=== PATIENT | female | born 1990 | race Caucasian/White ===

== ENCOUNTER 2022-10-26 19:37 | Emergency (ER) | payer BC, SELFPAY ==
[2022-10-26 19:44] VITALS: BP 138/78; PULSE 124; RESP 20; TEMP 37.1; O2SAT 98; BMI 24.8
--- NOTE | 2022-10-26 19:50 | ED.ALLEREA1 ---
Documented by User: CHELE Escobar 10/26/22 20:51 HPI - Allergic Reaction General Chief complaint: Allergic Reaction Stated complaint: ALLERGIC REACTION Time Seen by Provider: 10/26/22 19:38 Source: patient History of Present Illness HPI narrative: Patient is a 32-year-old female presents to the Emergency Room with concerns of ALLERGIC reaction. Patient states she noticed a warm sensation and itching to the occiput of her scalp yesterday, irritation to her ears, patient awoke this morning with hives on her extremities. States she ate out at a local bar but did not eat any new or different foods. She finished a Macrobid prescription approximately four days ago. She denies any difficulty breathing or swallowing. Patient was seen at the urgent care this morning and given a IM shot of presumptive steroid and was told to take Pepcid and Benadryl, she has been doing this throughout the day but has swelling now of her lower lip. She denies any abdominal pain or headache, denies any visual disturbance. she denies any known nut ALLERGIES or seafood ALLERGIES. Patient states she does not eat fish products. She denies any soaps lotions or detergents. She denies chance of with last menstrual cycle three weeks ago. MD complaint: Reports allergic reaction and hives Symptoms: Reports itching, facial swelling and lip swelling; Denies difficulty swallowing, difficulty breathing, tongue swelling, hoarseness, dizziness, nausea or vomiting Severity: mild Treatment prior to arrival: Reports benadryl and steroids; Denies topical medicine Related Data Previous Rx's Medication Instructions Recorded epinephrine 0.3 mg/0.3 mL 0.3 mg (0.3 mL) IM Q10M PRN 10/26/22 injection, auto-injector (EpiPen anaphylaxis #2 ea 2-Acosta) loratadine 10 mg tablet (Claritin) 10 mg PO DAILY PRN allergy 10/26/22 symptoms #30 tabs prednisone 20 mg tablet 40 mg PO DAILY 5 days #10 tabs 10/26/22 Allergies Allergy/AdvReac Type Severity Reaction Status Date / Time No Known Drug Allergies Allergy Verified 10/26/22 19:51 Review of Systems ROS Constitutional Denies: fever, chills or change in weight Eyes Denies: change in vision or blurry vision Ears, nose, mouth, and throat Denies: throat pain or neck pain Cardiovascular Denies: chest pain, palpitations or edema Respiratory Denies: shortness of breath or cough Gastrointestinal Denies: abdominal pain, nausea or vomiting Genitourinary Denies: painful urination Musculoskeletal Denies: back pain, neck pain or joint pain Integumentary/Breast Reports: rash Allergic/Immunologic Reports: hives; Denies: throat swelling, tongue swelling, wheezing or itchy eyes PFSH PFSH Social History Smoking status: Never smoker Exam Narrative Exam Narrative: Nurses notes and vital signs reviewed and patient is not hypoxic. General: The patient appears well and in no apparent distress. Patient is resting comfortably on cart. Skin: Warm, dry, no pallor noted.notable hives to the medial thighs and forearms. No involvement of the palms of hands or soles of feet. no sloughing of skin, dermatographia as noted, prominent swelling of the lower lip, no evidence of abscess or infection. Head: Normocephalic, atraumatic Neck: Supple, trachea mid-line, no tenderness, no lymphadenopathy Eye: Pupils are equal, round and reactive to light, EOMI Ears, Nose, Mouth, and Throat: TM are clear, normal light reflex, oral mucosa is moist, no posterior oropharynx erythema or hypertrophy, uvula is mid-line, diffuse lower lip swelling noted. Cardiovascular: Regular Rate and Rhythm Respiratory: Patient is in no distress, no accessory muscle use, lungs are clear to auscultation, no wheezing, rales or rhonchi. Chest Wall: no tenderness Back: non-tender, no CVA tenderness Musculoskeletal: normal ROM, no tenderness, no swelling GI: Normal bowel sounds, no tenderness to palpation, no masses appreciated. No rebound, guarding, or rigidity noted. Neurological: A&O x4 Psychiatric: Cooperative MDM - Allergic Reaction MDM Narrative Medical decision making narrative: stable vital signs, tachycardia noted, 1 L fluid bolus will be given. Patient is not hypotensive, no wheezing, clear lungs and no difficulty swallowing. We will place IV line and start with Pepcid IV and Solu-Medrol one twenty-five. Consider the use of epinephrine upon reevaluation.patient appears in no distress but concerned with pruritus. She cannot recall any triggering factor for her ALLERGIC reaction and has not experienced this in the past. patient reevaluated, she remains with complaints of pruritus, she denies any shortness of breath, lip swelling appears unchanged, we discussed risks and benefits of IM epinephrine. The patient is agreeable to injection given her medication given today. Discharge Plan Discharge Chief Complaint: Allergic Reaction Clinical Impression: Urticaria, Allergic reaction, Anemia Time of Disposition Decision: 21:59 Condition: Good Mode of Transportation: Private Vehicle Prescriptions / Home Meds: New epinephrine [EpiPen 2-Acosta] 0.3 mg/0.3 mL auto-injector 0.3 mg IM Q10M PRN (Reason: anaphylaxis) Qty: 2 0RF Rx Instructions: for 2 doses loratadine [Claritin] 10 mg tablet 10 mg PO DAILY PRN (Reason: allergy symptoms) Qty: 30 0RF prednisone 20 mg tablet 40 mg PO DAILY 5 Days Qty: 10 0RF Instructions: Epinephrine (By injection) (Adrenaclick, Adrenalin, EpiPen,..., Urticaria (ED), Anemia (ED) Referrals: Physician,Non-Staff, MD [Primary Care Provider] - 1 week (Follow-up with your doctor in 1 week. Return to the ED with new or worsening symptoms. ) Documented by User: Mani Hauser MD 10/26/22 22:04 HPI - Allergic Reaction General Chief complaint: Allergic Reaction Stated complaint: ALLERGIC REACTION Time Seen by Provider: 10/26/22 19:38 Related Data Previous Rx's Medication Instructions Recorded epinephrine 0.3 mg/0.3 mL 0.3 mg (0.3 mL) IM Q10M PRN 10/26/22 injection, auto-injector (EpiPen anaphylaxis #2 ea 2-Acosta) loratadine 10 mg tablet (Claritin) 10 mg PO DAILY PRN allergy 10/26/22 symptoms #30 tabs prednisone 20 mg tablet 40 mg PO DAILY 5 days #10 tabs 10/26/22 Allergies Allergy/AdvReac Type Severity Reaction Status Date / Time No Known Drug Allergies Allergy Verified 10/26/22 19:51 PFSH PFSH Social History Smoking status: Never smoker MDM - Allergic Reaction MDM Narrative Medical decision making narrative: stable vital signs, tachycardia noted, 1 L fluid bolus will be given. Patient is not hypotensive, no wheezing, clear lungs and no difficulty swallowing. We will place IV line and start with Pepcid IV and Solu-Medrol one twenty-five. Consider the use of epinephrine upon reevaluation.patient appears in no distress but concerned with pruritus. She cannot recall any triggering factor for her ALLERGIC reaction and has not experienced this in the past. patient reevaluated, she remains with complaints of pruritus, she denies any shortness of breath, lip swelling appears unchanged, we discussed risks and benefits of IM epinephrine. The patient is agreeable to injection given her medication given today. Attending Note: Symptoms improved after EPI. Watched for 1 hour post and she felt much better. Steroids, antihistamines, EpiPen to go. Return precautions discussed. Follow up with PCP. All questions were answered. The patient was discharged home. Differential Diagnosis Differential diagnosis: Likely anaphylaxis, allergic reaction, angioedema and urticaria Medical Records Attestation: I reviewed the patient's medical records. Lab Data Attestation: I reviewed the patient's lab results. Discharge Plan Discharge Chief Complaint: Allergic Reaction Clinical Impression: Urticaria, Allergic reaction, Anemia Time of Disposition Decision: 21:59 Condition: Good Mode of Transportation: Private Vehicle Prescriptions / Home Meds: New epinephrine [EpiPen 2-Acosta] 0.3 mg/0.3 mL auto-injector 0.3 mg IM Q10M PRN (Reason: anaphylaxis) Qty: 2 0RF Rx Instructions: for 2 doses loratadine [Claritin] 10 mg tablet 10 mg PO DAILY PRN (Reason: allergy symptoms) Qty: 30 0RF prednisone 20 mg tablet 40 mg PO DAILY 5 Days Qty: 10 0RF Instructions: Epinephrine (By injection) (Adrenaclick, Adrenalin, EpiPen,..., Urticaria (ED), Anemia (ED) Referrals: Physician,Non-Staff, MD [Primary Care Provider] - 1 week (Follow-up with your doctor in 1 week. Return to the ED with new or worsening symptoms. )
[2022-10-26 20:13] LABS: Basophils Percent Auto 0.1 % (0.2-2.0); Eosinophils Percent Auto 0.3 % (0.9-7.0); Hematocrit 32.2 % (36.0-48.0); Hemoglobin 10.1 g/dL (12.0-16.0); Immature Granulocytes Abs Auto 0.03 10^3/uL (0.00-0.03); Immature Granulocytes Pct Auto 0.2 % (0.0-0.5); Lymphocytes Absolute Auto 1.5 10^3/uL (1.2-3.8); Lymphocytes Percent Auto 11.1 % (20.5-60.0); Mean Corpuscular HGB Conc 31.4 g/dL (29.9-35.2); Mean Corpuscular Hemoglobin 23.7 pg (26.7-34.0); Mean Corpuscular Volume 75.4 fL (81.0-99.0); Mean Platelet Volume 9.9 fL (9.5-13.5); Monocytes Absolute Auto 0.5 10^3/uL (0.3-0.8); Monocytes Percent Auto 3.5 % (1.7-12.0); Neutrophils Absolute Auto 11.4 10^3/uL (1.4-6.5); Neutrophils Percent Auto 84.8 % (43.0-75.0); Platelet Count 318 10^3/uL (150-450); Red Blood Count 4.27 10^6/uL (4.20-5.40); White Blood Count 13.5 10^3/uL (4.0-11.0)
[2022-10-26 20:23] LABS: HCG Qualitative NEGATIVE (NEGATIVE)
[2022-10-26] MEDS: FAMOTIDINE/PF 20 MG/2 ML VIAL IV (20:25)
[2022-10-26] MEDS: METHYLPREDNISOLONE SOD SUCC PF 125 MG/2 ML VIAL IVP (20:25)
[2022-10-26 20:28] LABS: Alanine Aminotransferase 20 U/L (14-59); Albumin Globulin Ratio 1.1; Albumin Level 3.9 g/dL (3.4-5.0); Alkaline Phosphatase 61 U/L (46-116); Anion Gap 15.3; Aspartate Amino Transferase 11 U/L (15-37); BUN Creatinine Ratio 7.7; Bilirubin Total 0.3 mg/dL (0.2-1.0); Calcium 8.3 mg/dL (8.5-10.1); Carbon Dioxide 21.2 mmol/L (21.0-32.0); Chloride 104 mmol/L (98-107); Estimated GFR (African America >60 (>=60); Estimated GFR (Non-African Ame >60 (>=60); Globulin 3.5 g/dL; Glucose 122 mg/dL (74-106); Potassium 3.5 mmol/L (3.5-5.1); Sodium 137 mmol/L (136-145); Total Protein 7.4 g/dL (6.4-8.2)
[2022-10-26] MEDS: 0.9 % SODIUM CHLORIDE 1,000 ML 999 ML IV (20:29)
[2022-10-26 20:37] VITALS: RESP 18
[2022-10-26] MEDS: DIPHENHYDRAMINE HCL 50 MG/ML (1ML) VIAL 25 MG IV (20:47)
[2022-10-26] MEDS: EPINEPHRINE HCL PF 1 MG/ML AMPULE 0.3 MG IM (20:48)
== END 2022-10-26 22:25 | disposition home or self-care (01) ==
PROVIDERS: Personal Emergency Response Attendant; Emergency Provider Student in an Organized Health Care Education/Training Program
DX: L50.0 Allergic urticaria (principal)
CPT/HCPCS: 36415; 80053; 84703; 85025; 96372; 96374; 96375; 99284; J2930

== ENCOUNTER 2022-10-28 13:40 | Emergency (ER) | payer BC, SELFPAY ==
[2022-10-28 13:42] VITALS: BP 132/84; PULSE 118; RESP 18; TEMP 36.6; O2SAT 98; BMI 24.8
--- NOTE | 2022-10-28 14:09 | ED.ALLEREA1 ---
HPI - Allergic Reaction General Chief complaint: Allergic Reaction Stated complaint: ALLERGIC REACTION/BREAKING OUT Time Seen by Provider: 10/28/22 13:51 Source: patient Mode of arrival: walk-in Limitations: no limitations History of Present Illness HPI narrative: patient presents with skin itching, upper lip swelling and rash along the back of the neck. She has been experiencing intermittent allergic-type reactions for the last 3 days. She traveled to [place] and stayed [employer] [place] in addition to previously staying in her home with multiple pets so it is difficult to identify a potential source. She was evaluated at an urgent care the morning of 10/26/22 and then came to the emergency department that night. She received multiple doses of benadryl, steroid and even epinephrine =- she got an autpen from the urgent care, used that once and then got more epi in the ED and another autopen. She woke this morning around 430am with swelling of the upper lip and the rash to the back of neck developed later. She started to feel some throat changes so she used the epipen again. She now presents with tingling of both hands and a faint raised red rash to the back of the neck. Related Data Previous Rx's Medication Instructions Recorded epinephrine 0.3 mg/0.3 mL 0.3 mg (0.3 mL) IM Q10M PRN 10/26/22 injection, auto-injector (EpiPen anaphylaxis #2 ea 2-Acosta) loratadine 10 mg tablet (Claritin) 10 mg PO DAILY PRN allergy 10/26/22 symptoms #30 tabs prednisone 20 mg tablet 40 mg PO DAILY 5 days #10 tabs 10/26/22 Allergies Allergy/AdvReac Type Severity Reaction Status Date / Time No Known Drug Allergies Allergy Verified 10/26/22 19:51 [facility] Social History Smoking status: Never smoker Exam Narrative Exam Narrative: Nurses notes and vital signs reviewed and patient is not hypoxic. General: Well-appearing and in no apparent distress. Skin: Warm, dry, no pallor noted. faint diffuse erythematous raised urticarial rash to the back of the neck. Head: Normocephalic, atraumatic. Neck: Supple, non-tender. No swelling or cervical lymphadenopathy Eye: Pupils are equal, round and EOMI. No scleral icterus. Ears, Nose, Mouth, and Throat: Oral mucosa is moist, no posterior oropharynx erythema or swelling, uvula is mid-line, no tongue swelling Cardiovascular: Regular Rate and Rhythm without murmur, gallop or rub. Respiratory: No accessory muscle use or respiratory distress. Lungs are clear to auscultation, no wheezing, rales or rhonchi Musculoskeletal: normal ROM Neurological: A&O x4. No cranial nerve dysfunction observed. No truncal ataxia. Moves all extremities. Sensation intact. Psychiatric: Cooperative and interactive. Normal mood and affect. Constitutional Vital Signs, click to edit/add: Last Vital Signs Temp 97.9 F 10/28/22 13:42 Pulse 118 H 10/28/22 13:42 Resp 18 10/28/22 13:42 BP 132/84 10/28/22 13:42 Pulse Ox 98 10/28/22 13:42 O2 Del Method Room Air 10/28/22 13:42 Course Vital Signs Vital signs: Vital Signs Temperature 97.9 F 10/28/22 13:42 Pulse Rate 118 H 10/28/22 13:42 Respiratory Rate 18 10/28/22 13:42 Blood Pressure 132/84 10/28/22 13:42 Pulse Oximetry 98 10/28/22 13:42 Oxygen Delivery Method Room Air 10/28/22 13:42 Temperature 97.9 F 10/28/22 13:42 Pulse Rate 118 H 10/28/22 13:42 Respiratory Rate 18 10/28/22 13:42 Blood Pressure 132/84 10/28/22 13:42 Pulse Oximetry 98 10/28/22 13:42 Oxygen Delivery Method Room Air 10/28/22 13:42 MDM - Allergic Reaction MDM Narrative Medical decision making narrative: difficult to identify the source of the patient's symptoms. She is already feeling better after epipen use. No worrisome findings on exam to suggest need for hospital admission at this time. She received a steroid boost - 125mg IM solumedrol - and was discharge home. She still has epipen uses left and was instructed to continue to take the prednisone and benadryl as discussed previously. Discharge Plan Discharge Chief Complaint: Allergic Reaction Clinical Impression: Urticaria, Allergic reaction Time of Disposition Decision: 14:16 Prescriptions / Home Meds: No Action epinephrine [EpiPen 2-Acosta] 0.3 mg/0.3 mL auto-injector 0.3 mg IM Q10M PRN (Reason: anaphylaxis) Qty: 2 0RF Rx Instructions: for 2 doses loratadine [Claritin] 10 mg tablet 10 mg PO DAILY PRN (Reason: allergy symptoms) Qty: 30 0RF prednisone 20 mg tablet 40 mg PO DAILY 5 Days Qty: 10 0RF Instructions: Urticaria (ED), General Allergic Reaction (ED) Stand Alone Forms: Portal Instructions Referrals: Physician,Non-Staff, MD [Primary Care Provider] - 1 week
[2022-10-28] MEDS: METHYLPREDNISOLONE SOD SUCC PF 125 MG/2 ML VIAL IM (14:19)
== END 2022-10-28 14:24 | disposition home or self-care (01) ==
PROVIDERS: Emergency Provider Emergency Medicine
DX: L50.0 Allergic urticaria (principal)
CPT/HCPCS: 96372; 99284; J2930